=== PATIENT | female | born 1980 | race Caucasian/White ===

== ENCOUNTER → 2018-08-25 15:27 | Outpatient (CLI) | payer OTHER, SELFPAY ==
--- NOTE | 2018-08-25 15:31 | DI.RAD.S_ITS ---
PROCEDURE: XR CERVICAL SPINE 2V OR 3V INDICATIONS: Dorsalgia, unspecified TECHNIQUE: 3 view(s) of the cervical spine were acquired. COMPARISON: None. FINDINGS: Bones: No fractures or dislocations to the C7 level. The lateral masses of C1 appear intact on the odontoid view. No suspicious bony lesions. Straightening of the normal cervical lordosis and trace anterolisthesis of C2 on C3. Diffuse facet arthropathy. Moderate narrowing of the disc spaces from C5-T1. Endplate sclerosis and spurring in the mid to lower cervical spine. 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 IMPRESSION: Multilevel mid to lower cervical disc degeneration as above. 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 Please correlate clinically. Diffuse facet arthropathy. Dictated by: Adalberto Aguilar M.D. on 08/25/2018 at 16:17 Approved by: Adalberto Aguilar M.D. on 08/25/2018 at 16:21
--- NOTE | 2018-08-25 15:31 | DI.RAD.S_ITS ---
PROCEDURE: XR THORACIC SPINE 3V INDICATIONS: Dorsalgia, unspecified TECHNIQUE: 2 views of the thoracic spine were acquired. COMPARISON: [facility], SPINE THORACIC 3VW, 06/01/2015, 2:27 PM. FINDINGS: Bones: Unchanged appearance of chronic mid thoracic compression fracture with mild anterior height loss. Remaining vertebral bodies appear grossly unchanged. Levocurvature of the thoracic spine Soft tissues: No paravertebral stripe thickening. IMPRESSION: No acute fracture. Mild chronic mid to lower thoracic compression fracture, unchanged. Levocurvature. Dictated by: Adalberto Aguilar M.D. on 08/25/2018 at 16:21 Approved by: Adalberto Aguilar M.D. on 08/25/2018 at 16:23
== END ==
PROVIDERS: PCP Nurse Practitioner; Visit Provider Nurse Practitioner
DX: M54.9 Dorsalgia, unspecified (principal); M50.320 Other cervical disc degeneration, mid-cervical region, unspecified level; M47.812 Spondylosis without myelopathy or radiculopathy, cervical region; M48.54XS Collapsed vertebra, not elsewhere classified, thoracic region, sequela of fracture
CPT/HCPCS: 72040; 72072

== ENCOUNTER → 2024-10-06 16:17 | Outpatient (CLI) | payer BC, SELFPAY | PROVIDERS: PCP Nurse Practitioner; Referring Provider Physician Assistant; Visit Provider Physician Assistant | DX: J45.30 Mild persistent asthma, uncomplicated (principal); J30.81 Allergic rhinitis due to animal (cat) (dog) hair and dander; Z87.891 Personal history of nicotine dependence; R94.2 Abnormal results of pulmonary function studies | CPT/HCPCS: 94060; 94726; 94729 ==